=== PATIENT | male | born 1970 | race African-American/Black ===

== ENCOUNTER 2017-04-12 01:57 | Emergency (ER) | payer OTHER ==
[~2017-04-12] VITALS: Ht 177.8 cm; Wt 98.4 kg
[~2017-04-12 01:57] MED LIST: ATOR10TA PO
[2017-04-12] MEDS ORDERED: ASPIRIN 81 MG TAB.CHEW PO ONE (02:30)
[2017-04-12] MEDS ORDERED: NITROGLYCERIN OINT 1 GM PACKET TP ONE ×2 (02:30→02:52)
[2017-04-12] MEDS ORDERED: NITROGLYCERIN 0.4 MG/TAB BOTTLE SL ONE ×2 (02:30→02:52)
[2017-04-12 02:46] LABS: CREATININE 1.8 mg/dL (0.6-1.3); POTASSIUM 3.5 mmol/L (3.5-5.1)
[2017-04-12 02:48] LABS: BASOPHILS % (AUTO) 0.5 % (0.0-2.0); EOSINOPHILS # (AUTO) 0.1 K/uL (0.0-0.7); EOSINOPHILS % (AUTO) 1.3 % (0.0-7.0); HEMATOCRIT 40.4 % (40-50); HEMOGLOBIN 13.5 G/DL (14.0-18.0); LYMPHOCYTES # (AUTO) 3.4 K/UL (0.8-4.8); LYMPHOCYTES % (AUTO) 48.6 % (20.5-51.5); MEAN CORPUSCULAR HEMOGLOBIN 28.9 UUG (27.0-31.0); MEAN CORPUSCULAR HGB CONC 33 g/dL (32.0-37.0); MEAN CORPUSCULAR VOLUME 86.7 FL (82.0-92.0); MONOCYTES # (AUTO) 0.4 K/UL (0.1-1.30); MONOCYTES % (AUTO) 6.4 % (0.0-11.0); NEUTROPHILS % (AUTO) 43.2 % (38.5-71.5); PLATELET COUNT (AUTO) 218 K/UL (150-450); RED BLOOD CELL COUNT(AUTO) 4.66 MIL/UL (4.7-6.1); WHITE BLOOD COUNT (AUTO) 6.9 K/UL (4.0-11.2)
[2017-04-12] MEDS ORDERED: ASPIRIN 81 MG TAB.CHEW ONE (02:52)
[2017-04-12 02:59] LABS: BILIRUBIN,DIRECT 0.1 mg/dL (0.0-0.2); BILIRUBIN,TOTAL 0.4 mg/dL (0.2-1.0); TOTAL PROTEIN, SERUM 7.8 g/dL (6.4-8.2)
[2017-04-12] MEDS ORDERED: IV NORMAL SALINE 500 ML IV ONE (03:02)
[2017-04-12 05:44] LABS: CREATININE 1.5 mg/dL (0.6-1.3); POTASSIUM 3.8 mmol/L (3.5-5.1)
--- NOTE | 2017-04-12 06:15 | NUR ---
Patient discharged to home in stable conditon. Written and verbal after care instructions given. Patient verbalizes understanding of instructions.Ambulated from ER with stable gait. All belongings with patient. Peripheral IV removed. Patient will be driven home by significant other in private vehicle.
[2017-04-12 06:18] VITALS: BP 133/77
== END 2017-04-12 06:18 | disposition home or self-care (01) ==
LOC: ER 01:58
DX: R07.89 Other chest pain (principal); N28.9 Disorder of kidney and ureter, unspecified; E78.00 Pure hypercholesterolemia, unspecified
CPT/HCPCS: 36415; 71010; 76604; 80048 ×2; 80076; 83880; 84484 ×2; 85025; 93005; 99285; A4663 ×2; J7040; 70030-TC

== ENCOUNTER 2017-12-17 10:12 | Emergency (ER) | payer OTHER ==
[~2017-12-17] VITALS: Ht 175.3 cm; Wt 98.4 kg
--- NOTE | 2017-12-17 10:25 | NUR ---
Dr. Alegria at bedside.
[2017-12-17 11:02] LABS: BASOPHILS % (AUTO) 0.5 % (0.0-2.0); EOSINOPHILS # (AUTO) 0.1 K/uL (0.0-0.7); EOSINOPHILS % (AUTO) 1.3 % (0.0-7.0); HEMATOCRIT 39.5 % (36.7-47.1); HEMOGLOBIN 13.6 g/dL (12.5-16.3); LYMPHOCYTES # (AUTO) 0.9 K/uL (20.0-40.0); LYMPHOCYTES % (AUTO) 11.7 % (20.5-51.5); MEAN CORPUSCULAR HEMOGLOBIN 29.6 uug (23.8-33.4); MEAN CORPUSCULAR HGB CONC 34 g/dL (32.5-36.3); MONOCYTES # (AUTO) 0.5 K/uL (2.0-10.0); NEUTROPHILS # (AUTO) 6.5 K/uL (1.8-8.9); NEUTROPHILS % (AUTO) 80.5 % (38.5-71.5); PLATELET COUNT (AUTO) 199 K/uL (152-348); RED BLOOD CELL COUNT(AUTO) 4.59 MIL/uL (4.06-5.63); WHITE BLOOD COUNT (AUTO) 8.1 K/uL (3.6-10.2)
[2017-12-17 11:09] LABS: CREATININE 1.4 mg/dL (0.6-1.3); POTASSIUM 3.8 mmol/L (3.5-5.1)
[2017-12-17 11:25] VITALS: BP 110/63
--- NOTE | 2017-12-17 11:30 | NUR ---
Patient discharged to home in stable conditon. Written and verbal after care instructions given. Patient verbalizes understanding of instructions. Pt left ER in steady gait.
== END 2017-12-17 11:31 | disposition home or self-care (01) ==
LOC: ER 10:13
DX: J06.9 Acute upper respiratory infection, unspecified (principal); E78.00 Pure hypercholesterolemia, unspecified; Z79.899 Other long term (current) drug therapy
CPT/HCPCS: 36415; 71045; 85025; A4663

== ENCOUNTER 2018-07-31 22:25 | Emergency (ER) | payer OTHER ==
[~2018-07-31] VITALS: Ht 4579.6 cm; Wt 97.5 kg
--- NOTE | 2018-07-31 22:30 | NUR ---
HERE FOR CP OF 10/24 W/ SOB. DENIES ANY WHITE,N/V,DIZZINESS. A&OX4. ABLE TO FOLLOW COMMANDS & SPEAK IN FULL SENTENCES, SPEECH CLEAR. REPIRAITONS EVEN & UNLABORED W/ NO AMU. BS CLEAR. STATES HE IS FEELING THE SAME WAY WHEN THEY FOUND A CYST ON HIS HEART & WENT YO SURGERY. SIGNIFICANT PARTNER @ BS PROVIDING EMOTIONAL CARE. WILL CONTINUE TO MONITOR.
--- NOTE | 2018-07-31 23:20 | NUR ---
DISPO HOME W/ POST CARE,HOME CARE, FOLLOW-UP CARE INSTRUCTIONS. AMBULATING W/ STEADY GAIT HOME.
--- NOTE | 2018-07-31 23:40 | NUR ---
PT. RX ,DISPO SIGNATURE & INSTRUCTIONS NOT GIVEN. CALLED PT. & LEFT MESAGE. WILL ATTEMPT AGAIN.
--- NOTE | 2018-08-01 00:06 | NUR ---
2ND CALL MADE. NO ANSWER. MESSAGE LEFT. JUNIOR MEDIA BUYER AWARE.
[2018-08-01 00:10] VITALS: BP 133/68
== END 2018-08-01 00:11 | disposition home or self-care (01) ==
LOC: ER 22:27
DX: J06.9 Acute upper respiratory infection, unspecified (principal); I10 Essential (primary) hypertension
CPT/HCPCS: 36415; 70030-TC; 71045; 93005; A4663